=== PATIENT | female | born 1975 | race American Indian/Alaskan Native ===

== ENCOUNTER 2020-01-27 16:13 | Emergency (ER) | payer BC ==
[2020-01-27] MEDS ORDERED: IBUPROFEN 600 MG TAB PO ONE (19:40)
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
[2020-01-27 21:14] VITALS: BP 127/81
== END 2020-01-27 20:30 | disposition home or self-care (01) ==
LOC: ED 16:13
DX: S29.012A Strain of muscle and tendon of back wall of thorax, initial encounter (principal); V89.2XXA Person injured in unspecified motor-vehicle accident, traffic, initial encounter; Y93.89 Activity, other specified; Y92.89 Other specified places as the place of occurrence of the external cause; Y99.8 Other external cause status
CPT/HCPCS: 99283